=== PATIENT | female | born 1950 | race Two or more races ===

== ENCOUNTER → 2016-08-16 | Outpatient (REF) | payer MEDICARE, MEDICAID ==
[2016-08-17 11:46] LABS: FREE T4 1.02 NG/DL (0.76-1.46)
== END ==
LOC: M SFHCLERA 15:29
PROVIDERS: ATTEND Family Medicine
DX: E03.9 Hypothyroidism, unspecified (principal)
CPT/HCPCS: 84439; 84443; G0463

== ENCOUNTER → 2016-10-14 | Outpatient (REF) | payer MEDICARE, MEDICAID ==
[2016-10-14 20:30] LABS: FREE T4 1.38 NG/DL (0.76-1.46)
== END ==
LOC: M SFHCLERA 15:01
PROVIDERS: ATTEND Family Medicine
DX: E03.9 Hypothyroidism, unspecified (principal)

== ENCOUNTER → 2016-11-07 | Outpatient (REF) | payer MEDICARE, MEDICAID | LOC: M SFHCLERA 12:29 | PROVIDERS: ATTEND Family Medicine | DX: R31.9 Hematuria, unspecified (principal) | CPT/HCPCS: 81001; 87086; 88108; G0463 ==